=== PATIENT | male | born 1945 | race Caucasian/White ===

== ENCOUNTER 2024-09-30 12:52 | Outpatient (CLI) | payer OTHER, SELFPAY ==
--- NOTE | 2024-09-30 14:30 | CRLHL7_ITS ---
For Patients: As a result of the Century Cures Act, medical imaging exams and procedure reports are released immediately into your electronic medical record. You may view this report before your referring provider. If you have questions, please contact your health care provider. INDICATION: Right-sided amaurosis fugax TECHNIQUE: Noncontrast Sagittal T1,Axial FSE T2, Flair, DWI, post contrast axial and coronal T1W images submitted. No comparisons. 15 cc of Dotarem was administered intravenously. FINDINGS: Mild cerebral atrophy. The ventricles, sulci and gyri are of normal size, shape and contour for age and degree of atrophy. Midline structures are centrally located. No convincing evidence of suspicious intra- or extra-axial fluid collections. Mild patchy regions of increased T2 signal within the periventricular and subcortical white matter of both cerebral hemispheres. Tiny incidental venous angioma in the anterior paramedian left frontal lobe. No regions of restricted diffusion or suspicious regions of abnormal parenchymal enhancement. IMPRESSION: 1. No radiographic evidence of acute intracranial abnormalities. 2. Mild cerebral atrophy. 3. Mild supratentorial white matter changes that are non-specific, but statistically most likely related to chronic small vessel ischemic disease. Dictated by Tom Sr MD @ 09/30/2024 7:05:09 PM (Electronically Signed)
== END 2024-09-30 12:53 | disposition home or self-care (01) ==
LOC: RAD 12:57
PROVIDERS: PCP Internal Medicine; Visit Provider Internal Medicine
DX: G45.3 Amaurosis fugax (principal); G31.9 Degenerative disease of nervous system, unspecified; G93.9 Disorder of brain, unspecified
CPT/HCPCS: 70553; 93306; A9575